=== PATIENT | female | born 1935 | race Caucasian/White ===

== ENCOUNTER 2018-08-06 16:27 | Observation (INO) ==
--- NOTE | 2018-08-06 17:21 | ED ---
HPI General Chief complaint: Recheck/Abnormal Lab/Rx Stated complaint: Cardiac Time Seen by Provider: 08/06/18 16:59 Source: patient Mode of arrival: ambulatory Limitations: no limitations History of Present Illness HPI narrative: The patient is an 83-year-old female with a past medical history significant for hypertension and chronic kidney disease that was sent by her supply cataloguer Dr. Holland due to EKG changes after reviewing her EKGs that she had with her it appears that she has flipped T waves on V5 and V6 without any other. She does have bilateral pitting edema lower extremities.Changes also there is a poor R wave progression in the precordial leads when compared to the previous studies. The patient does not have any chest pain or shortness of breath is on blood thinners for cardiac stent and has been having a labile blood pressure that fluctuates from 100/40 to 199/98. Onset (ago): week(s) (1) Pain Consistency: intermittent Related Data Home Medications Medication Instructions Recorded Confirmed aspirin 81 mg PO DAILY 08/06/18 08/06/18 losartan 25 mg PO DAILY 08/06/18 08/06/18 omeprazole 20 mg PO DAILY 08/06/18 08/06/18 pravastatin 40 mg PO DAILY 08/06/18 08/06/18 ticagrelor [Brilinta] 60 mg PO BID 08/06/18 08/06/18 Previous Rx's Medication Instructions Recorded amlodipine 7.5 mg PO DAILY #45 tab 08/07/18 Allergies Allergy/AdvReac Type Severity Reaction Status Date / Time Iodinated Contrast- Oral and Allergy Severe syncope Verified 08/06/18 21:24 IV Dye codeine AdvReac Severe numerous Verified 08/06/18 21:24 adverse reactions hydrocodone AdvReac Severe numerous Verified 08/06/18 21:24 adverse reactions oxycodone AdvReac Severe numerous Verified 08/06/18 21:24 adverse reactions propoxyphene AdvReac Severe numerous Verified 08/06/18 21:24 adverse reactions Review of Systems ROS: all other systems reviewed are negative PMFSH History History Provided By: Patient Medical History Medical History Chronic kidney disease (Acute) Coronary artery disease (Acute) Hyperlipidemia (Acute) Hypertension (Acute) Surgical History Surgical History H/O spinal fusion (Acute) History of heart artery stent (Acute) History of hip surgery (Acute) Social History Social History Substance History: No History of Abuse Second Hand Smoke Exposure: No Smoking Status: Never smoker How Often Do You Have a Drink Containing Alcohol: Monthly or less Recent Travel in [facility] within the Last 8 Weeks: No Recent Out of Country Travel within the Last 8 Weeks: No Exam Narrative Exam Narrative: GENERAL: Alert and oriented in no distress SKIN: Focused skin assessment warm/dry. Ecchymosis on various healing stages on bilateral lower extremities from blood thinners. HEAD: Atraumatic. Normocephalic. EYES: Pupils equal and round. No scleral icterus. No injection or drainage. ENT: No nasal bleeding or discharge. Mucous membranes pink and moist. NECK: Trachea midline. No JVD. CARDIOVASCULAR: Regular rate and rhythm. No murmur appreciated. RESPIRATORY: No accessory muscle use. Clear to auscultation. Breath sounds equal bilaterally. GASTROINTESTINAL: Abdomen soft, non-tender, nondistended. Hepatic and splenic margins not palpable. MUSCULOSKELETAL: No obvious deformities. No clubbing. No cyanosis. +1 pitting edema. NEUROLOGICAL: Awake and alert. No obvious cranial nerve deficits. Motor grossly within normal limits. Normal speech. PSYCHIATRIC: Appropriate mood and affect; insight and judgment normal. Course Initial Documented Vital Signs Temperature 97.8 F 08/06/18 16:32 Pulse Rate 61 08/06/18 16:32 Respiratory Rate 16 08/06/18 16:32 Blood Pressure 145/67 H 08/06/18 16:32 Pulse Oximetry 96 08/06/18 16:32 Last Documented Vital Signs Temperature 97.7 F 08/07/18 12:00 Pulse Rate 59 L 08/07/18 12:00 Respiratory Rate 16 08/07/18 12:00 Blood Pressure 161/72 H 08/07/18 12:00 Pulse Oximetry 94 L 08/07/18 12:00 Sign Out Sign Out Data: Patient Sign Out occurred on 08/06/18 at 19:03. Patient's care was discussed, and care was transferred from Raciel Castano DO to Chip Benton. Sign Out Comment: EKG changes waiting for workup. Initial troponin is negative. Patient CARE transferred to Dr. Benton Last updated by Raciel Castano DO at 08/06/18 18:56 Post-Handoff Eval: no leukocytosis, anemia, left shift....normal plt count coag profile normal first set cardiac enzymes neg electrolytes nl, nl kidney and liver functions bnp 308 which although elevated did not coincide with major pulm edema on cxr. patient's supply cataloguer dr holland requested admission...... Medical Decision Making MDM Narrative Medical Screen Exam Complete: Yes Emergency Medical Condition: Yes Lab Data Result diagrams: 08/07/18 06:03 08/07/18 15:10 Lab Results 08/06/18 08/06/18 08/06/18 Range/Units 17:25 17:25 17:25 WBC 7.7 (4.0-11.0) th/mm3 RBC 5.20 (4.00-5.30) mil/mm3 Hgb 15.8 H (11.6-15.3) gm/dL Hct 48.4 H (35.0-46.0) % MCV 93.1 (80.0-100.0) fL MCH 30.4 (27.0-34.0) pg MCHC 32.7 (32.0-36.0) % RDW 15.4 (11.6-17.2) % Plt Count 195 (150-450) th/mm3 MPV 8.7 (7.0-11.0) fL Neut % (Auto) 63.7 (16.0-70.0) % Lymph % (Auto) 22.2 (9.0-44.0) % [place] % (Auto) 10.6 H (0.0-8.0) % Eos % (Auto) 2.9 (0.0-4.0) % Baso % (Auto) 0.6 (0.0-2.0) % Neut # (Auto) 4.9 (1.8-7.7) th/mm3 Lymph # (Auto) 1.7 (1.0-4.8) th/mm3 [place] # (Auto) 0.8 (0.0-0.9) th/mm3 Eos # (Auto) 0.2 (0.0-0.4) th/mm3 Baso # (Auto) 0.0 (0.0-0.2) th/mm3 WBC Differential . Differential Comment Auto diff final PT 9.8 (9.8-11.6) sec INR 1.0 Ratio APTT 24.9 (24.3-30.1) sec Sodium 140 (136-145) meq/L Potassium 4.4 (3.5-5.1) meq/L Chloride 105 (98-107) meq/L Carbon Dioxide 27.4 (21.0-32.0) meq/L Anion Gap 8 (5-15) meq/L BUN 9 (7-18) mg/dL Creatinine 0.77 (0.50-1.00) mg/dL Estimated GFR 71 L (>89) mL/min Random Glucose 87 (74-106) mg/dL Calcium 8.8 (8.5-10.1) mg/dL Prot Corrected Calcium (8.5-10.1) mg/dL Magnesium 1.9 (1.5-2.5) mg/dL Total Bilirubin 0.6 (0.2-1.0) mg/dL AST 34 (15-37) U/L ALT 33 (10-53) U/L Alkaline Phosphatase 82 (45-117) U/L Total Creatine Kinase 85 (26-192) U/L Troponin I Less than 0.02 L (0.02-0.05) ng/mL B-Natriuretic Peptide (0-100) pg/mL Total Protein 7.4 (6.4-8.2) g/dL Albumin 3.9 (3.4-5.0) g/dL 08/06/18 08/06/18 08/07/18 Range/Units 17:25 23:43 06:00 WBC (4.0-11.0) th/mm3 RBC (4.00-5.30) mil/mm3 Hgb (11.6-15.3) gm/dL Hct (35.0-46.0) % MCV (80.0-100.0) fL MCH (27.0-34.0) pg MCHC (32.0-36.0) % RDW (11.6-17.2) % Plt Count (150-450) th/mm3 MPV (7.0-11.0) fL Neut % (Auto) (16.0-70.0) % Lymph % (Auto) (9.0-44.0) % [place] % (Auto) (0.0-8.0) % Eos % (Auto) (0.0-4.0) % Baso % (Auto) (0.0-2.0) % Neut # (Auto) (1.8-7.7) th/mm3 Lymph # (Auto) (1.0-4.8) th/mm3 [place] # (Auto) (0.0-0.9) th/mm3 Eos # (Auto) (0.0-0.4) th/mm3 Baso # (Auto) (0.0-0.2) th/mm3 WBC Differential Differential Comment PT (9.8-11.6) sec INR Ratio APTT (24.3-30.1) sec Sodium 149 H (136-145) meq/L Potassium 3.0 L D (3.5-5.1) meq/L Chloride 118 H D (98-107) meq/L Carbon Dioxide 22.1 (21.0-32.0) meq/L Anion Gap 9 (5-15) meq/L BUN 6 L (7-18) mg/dL Creatinine 0.39 L (0.50-1.00) mg/dL Estimated GFR Greater than 89 (>89) mL/min Random Glucose 63 L (74-106) mg/dL Calcium 6.3 L* D (8.5-10.1) mg/dL Prot Corrected Calcium 7.6 L (8.5-10.1) mg/dL Magnesium (1.5-2.5) mg/dL Total Bilirubin (0.2-1.0) mg/dL AST (15-37) U/L ALT (10-53) U/L Alkaline Phosphatase (45-117) U/L Total Creatine Kinase 51 31 (26-192) U/L Troponin I Less than 0.02 L 0.02 (0.02-0.05) ng/mL B-Natriuretic Peptide 308 H (0-100) pg/mL Total Protein 4.5 L D (6.4-8.2) g/dL Albumin (3.4-5.0) g/dL 08/07/18 08/07/18 08/07/18 Range/Units 06:03 13:50 15:10 WBC 7.6 (4.0-11.0) th/mm3 RBC 4.85 (4.00-5.30) mil/mm3 Hgb 14.7 (11.6-15.3) gm/dL Hct 44.9 (35.0-46.0) % MCV 92.7 (80.0-100.0) fL MCH 30.4 (27.0-34.0) pg MCHC 32.8 (32.0-36.0) % RDW 14.9 (11.6-17.2) % Plt Count 170 (150-450) th/mm3 MPV 8.8 (7.0-11.0) fL Neut % (Auto) 68.5 (16.0-70.0) % Lymph % (Auto) 19.8 (9.0-44.0) % [place] % (Auto) 8.9 H (0.0-8.0) % Eos % (Auto) 2.3 (0.0-4.0) % Baso % (Auto) 0.5 (0.0-2.0) % Neut # (Auto) 5.2 (1.8-7.7) th/mm3 Lymph # (Auto) 1.5 (1.0-4.8) th/mm3 [place] # (Auto) 0.7 (0.0-0.9) th/mm3 Eos # (Auto) 0.2 (0.0-0.4) th/mm3 Baso # (Auto) 0.0 (0.0-0.2) th/mm3 WBC Differential . Differential Comment Auto diff final PT (9.8-11.6) sec INR Ratio APTT (24.3-30.1) sec Sodium 141 (136-145) meq/L Potassium 5.5 H D 5.1 (3.5-5.1) meq/L Chloride 107 D (98-107) meq/L Carbon Dioxide 26.4 (21.0-32.0) meq/L Anion Gap 8 (5-15) meq/L BUN 9 (7-18) mg/dL Creatinine 0.68 (0.50-1.00) mg/dL Estimated GFR 82 L (>89) mL/min Random Glucose 72 L (74-106) mg/dL Calcium 9.2 D (8.5-10.1) mg/dL Prot Corrected Calcium (8.5-10.1) mg/dL Magnesium (1.5-2.5) mg/dL Total Bilirubin (0.2-1.0) mg/dL AST (15-37) U/L ALT (10-53) U/L Alkaline Phosphatase (45-117) U/L Total Creatine Kinase (26-192) U/L Troponin I (0.02-0.05) ng/mL B-Natriuretic Peptide (0-100) pg/mL Total Protein (6.4-8.2) g/dL Albumin (3.4-5.0) g/dL Imaging Data Radiologist's impression: Chest X-Ray 08/06/18 17:17 CONCLUSION: Negative examination. Discharge Plan Discharge Disposition Patient Disposition: 01 Discharge Home Discharge Condition Condition: Stable Discharge Order Discharge Orders: Discharge Order (Routine); Ordered 08/07/18 Ordered By: Anuja Walsh Discharge Details Anticipated Discharge Date: 08/07/18 Diagnosis: Acute electrocardiogram changes, HTN (hypertension) Physicians Team ED Provider: Chip Benton Primary Care Provider: NON STAFF,PROVIDER Attending Provider: Selena Yusuf Other Providers: Anupam Holland ; [employer] Discharge Interventions Interventions: ED Discharge Assessment Last Done: 08/06/18 22:22 Vital Signs Last Done: 08/06/18 16:32 Status ED Status: Left Department Discharge Information Discharge Date/Time: 08/06/18 22:00
--- NOTE | 2018-08-06 17:30 | XR ---
EXAM DATE: 08/06/2018 5:26 PM EDT AGE/SEX: 83 years / Female INDICATIONS: Chest pain CLINICAL DATA: This is the patient's initial encounter. Patient reports that signs and symptoms have been present for 1 week and indicates a pain score of 0/10. MEDICAL/SURGICAL HISTORY: Cardiovascular disease. Carotid stent. COMPARISON: [facility] [place], [place]. . FINDINGS: A single AP view of the chest demonstrates the lungs to be symmetrically aerated without evidence of mass, infiltrate or effusion. The cardiomediastinal contours are unremarkable. Osseous structures a re intact. CONCLUSION: Negative examination. Electronically signed by: Negro Avalos MD 08/06/2018 5:29 PM EDT
[2018-08-06 17:52] LABS: Baso % (Auto) 0.6 % (0.0-2.0); Eos # (Auto) 0.2 th/mm3 (0.0-0.4); Eos % (Auto) 2.9 % (0.0-4.0); Hematocrit 48.4 % (35.0-46.0); Hemoglobin 15.8 gm/dL (11.6-15.3); Lymph # (Auto) 1.7 th/mm3 (1.0-4.8); Lymph % (Auto) 22.2 % (9.0-44.0); Mean Corpuscular HGB Conc 32.7 % (32.0-36.0); Mean Corpuscular Hemoglobin 30.4 pg (27.0-34.0); Mean Corpuscular Volume 93.1 fL (80.0-100.0); Mean Platelet Volume 8.7 fL (7.0-11.0); Mono # (Auto) 0.8 th/mm3 (0.0-0.9); Mono % (Auto) 10.6 % (0.0-8.0); Neut # (Auto) 4.9 th/mm3 (1.8-7.7); Neut % (Auto) 63.7 % (16.0-70.0); Platelet Count 195 th/mm3 (150-450); Red Cell Distribution Width 15.4 % (11.6-17.2); White Blood Count 7.7 th/mm3 (4.0-11.0)
[2018-08-06 18:03] LABS: Activated Partial Thrombo Time 24.9 sec (24.3-30.1); Prothrombin Time 9.8 sec (9.8-11.6)
[2018-08-06 18:16] LABS: Alanine Aminotransferase 33 U/L (10-53)
[2018-08-06 18:19] LABS: Alkaline Phosphatase 82 U/L (45-117); Total Protein 7.4 g/dL (6.4-8.2)
[2018-08-06 18:45] LABS: Creatine Kinase 85 U/L (26-192)
[2018-08-06 18:47] LABS: Albumin 3.9 g/dL (3.4-5.0); Anion Gap 8 meq/L (5-15); Aspartate Aminotransferase 34 U/L (15-37); Blood Urea Nitrogen 9 mg/dL (7-18); Calcium 8.8 mg/dL (8.5-10.1); Carbon Dioxide 27.4 meq/L (21.0-32.0); Chloride 105 meq/L (98-107); Glomerular Filtration Rate 71 mL/min (>89); Glucose,Random 87 mg/dL (74-106); Magnesium 1.9 mg/dL (1.5-2.5); Potassium 4.4 meq/L (3.5-5.1); Sodium 140 meq/L (136-145)
[2018-08-06] MEDS ORDERED: Acetaminophen 325 MG Tablet PO PRN (20:44)
[2018-08-06] MEDS ORDERED: Bisacodyl 10 MG Supp RECTAL PRN (20:44)
--- NOTE | 2018-08-06 22:03 | P.HP ---
History of Present Illness Service: [facility] Primary Care Physician: PROVIDER NON STAFF History of Present Illness: 83-year-old female with a past medical history significant for coronary artery disease, chronic kidney disease, hypertension and hyperlipidemia presents to the emergency department for the evaluation of acute EKG changes. The patient was sent by her hub lead, Dr. Holland, due to EKG changes. The patient has new inverted T waves on V5 and V6 and poor R-wave progression. She also has bilateral pitting edema. She denies chest pain or shortness of breath. No abdominal pain, nausea/vomiting/diarrhea. No jaw or neck pain. No diaphoresis. No fever/chills. No lateralizing signs/symptoms. [facility] - History History Provided By: Patient - Medical History Medical History: Medical History (Last Updated 08/06/18 @ 21:56 by Shilpa Medley MD) Chronic kidney disease Coronary artery disease Hyperlipidemia Hypertension - Surgical History Surgical History: Surgical History (Last Updated 08/06/18 @ 21:57 by Shilpa Medley MD) H/O spinal fusion History of heart artery stent History of hip surgery - Tobacco History Smoking Status: Never smoker - Alcohol History How Often Do You Have a Drink Containing Alcohol: Never - Travel History Recent Travel in the [place] Within the Last 8 Weeks: No Recent Travel Out of the Country Within the Last 8 Weeks: No - Immunization History Tetanus Immunization: <5 Years Medications and Allergies Active Medications: Active Medications Acetaminophen (Tylenol) 650 mg PO Q4H PRN PRN Reason: Temp > 100.4 Amlodipine Besylate (Norvasc) 5 mg PO DAILY [facility] Aspirin (Aspirin Chew) 81 mg PO DAILY [facility] Bisacodyl (Dulcolax Supp) 10 mg RECTAL DAILY PRN PRN Reason: SEVERE CONSITIPATION Lactulose (Lactulose Liq) 30 ml PO DAILY PRN PRN Reason: SEVERE CONSITIPATION Losartan Potassium (Cozaar) 25 mg PO DAILY [facility] Ondansetron HCl (Zofran Inj) 4 mg IV.PUSH Q6H PRN PRN Reason: NAUSEA OR VOMITING Pantoprazole Sodium (Protonix) 20 mg PO DAILY [facility] Pravastatin Sodium (Pravachol) 40 mg PO DAILY [facility] Sennosides (Senokot) 17.2 mg PO Q12H PRN PRN Reason: Moderate Constipation Sodium Chloride (Ns Flush) 2 ml IV.FLUSH UNSCH PRN PRN Reason: FLUSH AFTER USING IV ACCESS Ticagrelor (Brilinta) 60 mg PO BID [facility] Last Admin: 08/06/18 20:55 Dose: Not Given Allergies Allergy/AdvReac Type Severity Reaction Status Date / Time Iodinated Contrast- Oral and Allergy Severe syncope Verified 08/06/18 21:24 IV Dye codeine AdvReac Severe numerous Verified 08/06/18 21:24 adverse reactions hydrocodone AdvReac Severe numerous Verified 08/06/18 21:24 adverse reactions oxycodone AdvReac Severe numerous Verified 08/06/18 21:24 adverse reactions propoxyphene AdvReac Severe numerous Verified 08/06/18 21:24 adverse reactions Home Medications Medication Instructions Recorded Confirmed Type amlodipine 5 mg PO DAILY 08/06/18 08/06/18 History aspirin 81 mg PO DAILY 08/06/18 08/06/18 History losartan 25 mg PO DAILY 08/06/18 08/06/18 History omeprazole 20 mg PO DAILY 08/06/18 08/06/18 History pravastatin 40 mg PO DAILY 08/06/18 08/06/18 History ticagrelor [Brilinta] 60 mg PO BID 08/06/18 08/06/18 History Exam Vital signs: Vital Signs 08/06/18 16:32 08/06/18 17:33 08/06/18 18:48 Temperature 97.8 F Pulse Rate 61 57 L Respiratory Rate 16 17 Blood Pressure 145/67 H 168/75 H Pulse Oximetry 96 98 96 08/06/18 21:26 Temperature Pulse Rate 60 Respiratory Rate 20 Blood Pressure 166/70 H Pulse Oximetry 97 Intake & Output 08/06/18 08/06/18 08/07/18 06:59 18:59 06:59 Weight 48.988 kg Narrative: Gen.: No acute distress Head: Normocephalic. Atraumatic. EENT: Pupils equal round and reactive to light. Nose without drainage. Airway intact. Throat without injection. Cardiovascular: Regular rate and rhythm. No murmurs, rubs or gallops. Respiratory: Lungs clear to auscultation bilaterally. No wheezes or rhonchi. Abdomen: Soft, nontender, nondistended. No peritoneal signs. Musculoskeletal: No gross deformities. No edema. Skin: No obvious rashes or erythema. Neuro: Sensory and motor grossly intact. Cranial nerves II through XII grossly intact. Results - Labs CBC & Chem 7: 08/06/18 17:25 08/06/18 17:25 Labs: Laboratory Results - last 24 hr 08/06/18 08/06/18 08/06/18 17:25 17:25 17:25 WBC 7.7 RBC 5.20 Hgb 15.8 H Hct 48.4 H MCV 93.1 MCH 30.4 MCHC 32.7 RDW 15.4 Plt Count 195 MPV 8.7 Neut % (Auto) 63.7 Lymph % (Auto) 22.2 [place] % (Auto) 10.6 H Eos % (Auto) 2.9 Baso % (Auto) 0.6 Neut # (Auto) 4.9 Lymph # (Auto) 1.7 [place] # (Auto) 0.8 Eos # (Auto) 0.2 Baso # (Auto) 0.0 WBC Differential . Differential Comment Auto diff final PT 9.8 INR 1.0 APTT 24.9 Sodium 140 Potassium 4.4 Chloride 105 Carbon Dioxide 27.4 Anion Gap 8 BUN 9 Creatinine 0.77 Estimated GFR 71 L Random Glucose 87 Calcium 8.8 Magnesium 1.9 Total Bilirubin 0.6 AST 34 ALT 33 Alkaline Phosphatase 82 Total Creatine Kinase 85 Troponin I Less than 0.02 L B-Natriuretic Peptide Total Protein 7.4 Albumin 3.9 08/06/18 17:25 WBC RBC Hgb Hct MCV MCH MCHC RDW Plt Count MPV Neut % (Auto) Lymph % (Auto) [place] % (Auto) Eos % (Auto) Baso % (Auto) Neut # (Auto) Lymph # (Auto) [place] # (Auto) Eos # (Auto) Baso # (Auto) WBC Differential Differential Comment PT INR APTT Sodium Potassium Chloride Carbon Dioxide Anion Gap BUN Creatinine Estimated GFR Random Glucose Calcium Magnesium Total Bilirubin AST ALT Alkaline Phosphatase Total Creatine Kinase Troponin I B-Natriuretic Peptide 308 H Total Protein Albumin - Imaging Impressions Chest X-Ray 08/06/18 17:17 CONCLUSION: Negative examination. Caprini VTE Risk Assessment Caprini VTE Risk Assessment: Moderate/High Risk (score >= 2) Caprini Risk Assessment Model: Point Value = 1 Point Value = 2 Point Value = 3 Point Value = 5 Age 41-60 Minor surgery BMI > 25 kg/m2 Swollen legs Varicose veins or History of unexplained or recurrent spontaneous Oral contraceptives or hormone replacement Sepsis (< 1 month) Serious lung disease, including pneumonia (< 1 month) Abnormal pulmonary function Acute myocardial infarction Congestive heart failure (< 1 month) History of inflammatory bowel disease Medical patient at bed rest Age 61-74 Arthroscopic surgery Major open surgery (> 45 min) Laparoscopic surgery (> 45 min) Malignancy Confined to bed (> 72 hours) Immobilizing plaster cast Central venous access Age >= 75 History of VTE Family history of VTE Factor V Leiden Prothrombin [id number] Lupus anticoagulant Anticardiolipin antibodies Elevated serum homocysteine Heparin-induced thrombocytopenia Other congenital or acquired thrombophilia Stroke (< 1 month) Elective arthroplasty Hip, pelvis, or leg fracture Acute spinal cord injury (< 1 month) Prophylaxis Regimen: Total Risk Factor Score Risk Level Prophylaxis Regimen 0-1 Low Early ambulation 2 Moderate Order ONE of the following: *Sequential Compression Device (SCD) *Heparin 5000 units SQ BID 3-4 Higher Order ONE of the following medications: *Heparin 5000 units SQ TID *Enoxaparin/Lovenox 40 mg SQ daily (WT < 150 kg, CrCl > 30 mL/min) *Enoxaparin/Lovenox 30 mg SQ daily (WT < 150 kg, CrCl > 10-29 mL/min) *Enoxaparin/Lovenox 30 mg SQ BID (WT < 150 kg, CrCl > 30 mL/min) AND/OR *Sequential Compression Device (SCD) 5 or more Highest Order ONE of the following medications: *Heparin 5000 units SQ TID (Preferred with Epidurals) *Enoxaparin/Lovenox 40 mg SQ daily (WT < 150 kg, CrCl > 30 mL/min) *Enoxaparin/Lovenox 30 mg SQ daily (WT < 150 kg, CrCl > 10-29 mL/min) *Enoxaparin/Lovenox 30 mg SQ BID (WT < 150 kg, CrCl > 30 mL/min) AND *Sequential Compression Device (SCD) Assessment and Plan - Plan Assessment/plan: 1. Acute EKG changes Initial troponin negative EKG as documented in HPI ACS rule out pending; serial troponins/EKGs Patient's hub lead, Dr. Holland consulted, appreciate recommendations 2. Chronic kidney disease Creatinine 0.77 Monitor renal function 3. Hypertension/hyperlipidemia Continue home amlodipine, losartan, pravastatin 4. Coronary artery disease Continue home Brilinta, aspirin FEN N.p.o. Electrolytes: Monitor and replete as needed Heparin
[2018-08-06 23:35] VITALS: RESP 16
[2018-08-07 00:35] LABS: Creatine Kinase 51 U/L (26-192)
[2018-08-07 06:38] LABS: Anion Gap 9 meq/L (5-15); Blood Urea Nitrogen 6 mg/dL (7-18); Carbon Dioxide 22.1 meq/L (21.0-32.0); Chloride 118 meq/L (98-107); Glomerular Filtration Rate Greater Than 89 mL/min (>89); Sodium 149 meq/L (136-145)
[2018-08-07 06:39] LABS: Calcium 6.3 mg/dL (8.5-10.1); Glucose,Random 63 mg/dL (74-106); Troponin I 0.02 ng/mL (0.02-0.05)
[2018-08-07 06:43] LABS: Creatine Kinase 31 U/L (26-192)
--- NOTE | 2018-08-07 07:00 | P.PNCA ---
Physical Exam Vital signs: Vital Signs 08/06/18 16:32 08/06/18 17:33 08/06/18 18:48 Temperature 97.8 F Pulse Rate 61 57 L Respiratory Rate 16 17 Blood Pressure 145/67 H 168/75 H Pulse Oximetry 96 98 96 08/06/18 21:26 08/06/18 23:33 08/07/18 00:00 Temperature 97.3 F L 97.3 F L Pulse Rate 60 56 L 56 L Respiratory Rate 20 16 16 Blood Pressure 166/70 H 164/71 H 164/71 H Pulse Oximetry 97 95 95 08/07/18 03:55 Temperature 98.1 F Pulse Rate 68 Respiratory Rate 16 Blood Pressure 130/60 Pulse Oximetry 95 Intake & Output 08/06/18 08/06/18 08/07/18 06:59 18:59 06:59 Weight 48.988 kg 48.988 kg Other: Weight On Admission 48.988 kg Results Completed studies during hospitalization: Laboratory Results - last 24 hr 08/06/18 08/06/18 08/06/18 17:25 17:25 17:25 WBC 7.7 RBC 5.20 Hgb 15.8 H Hct 48.4 H MCV 93.1 MCH 30.4 MCHC 32.7 RDW 15.4 Plt Count 195 MPV 8.7 Neut % (Auto) 63.7 Lymph % (Auto) 22.2 [place] % (Auto) 10.6 H Eos % (Auto) 2.9 Baso % (Auto) 0.6 Neut # (Auto) 4.9 Lymph # (Auto) 1.7 [place] # (Auto) 0.8 Eos # (Auto) 0.2 Baso # (Auto) 0.0 WBC Differential . Differential Comment Auto diff final PT 9.8 INR 1.0 APTT 24.9 Sodium 140 Potassium 4.4 Chloride 105 Carbon Dioxide 27.4 Anion Gap 8 BUN 9 Creatinine 0.77 Estimated GFR 71 L Random Glucose 87 Calcium 8.8 Magnesium 1.9 Total Bilirubin 0.6 AST 34 ALT 33 Alkaline Phosphatase 82 Total Creatine Kinase 85 Troponin I Less than 0.02 L B-Natriuretic Peptide Total Protein 7.4 Albumin 3.9 08/06/18 08/06/18 08/07/18 17:25 23:43 06:00 WBC RBC Hgb Hct MCV MCH MCHC RDW Plt Count MPV Neut % (Auto) Lymph % (Auto) [place] % (Auto) Eos % (Auto) Baso % (Auto) Neut # (Auto) Lymph # (Auto) [place] # (Auto) Eos # (Auto) Baso # (Auto) WBC Differential Differential Comment PT INR APTT Sodium 149 H Potassium 3.0 L D Chloride 118 H D Carbon Dioxide 22.1 Anion Gap 9 BUN 6 L Creatinine 0.39 L Estimated GFR Greater than 89 Random Glucose 63 L Calcium 6.3 L* D Magnesium Total Bilirubin AST ALT Alkaline Phosphatase Total Creatine Kinase 51 31 Troponin I Less than 0.02 L 0.02 B-Natriuretic Peptide 308 H Total Protein Albumin Labs on day of discharge: Labs from last 24 hours 08/07/18 08/06/18 08/06/18 06:00 23:43 17:25 WBC RBC Hgb Hct MCV MCH MCHC RDW Plt Count MPV Neut % (Auto) Lymph % (Auto) [place] % (Auto) Eos % (Auto) Baso % (Auto) Neut # (Auto) Lymph # (Auto) [place] # (Auto) Eos # (Auto) Baso # (Auto) WBC Differential Differential Comment PT INR APTT Sodium 149 H Potassium 3.0 L D Chloride 118 H D Carbon Dioxide 22.1 Anion Gap 9 BUN 6 L Creatinine 0.39 L Estimated GFR Greater than 89 Random Glucose 63 L Calcium 6.3 L* D Prot Corrected Calcium Pending Magnesium Total Bilirubin AST ALT Alkaline Phosphatase Total Creatine Kinase 31 51 Troponin I 0.02 Less than 0.02 L B-Natriuretic Peptide 308 H Total Protein Pending Albumin 08/06/18 08/06/18 08/06/18 17:25 17:25 17:25 WBC 7.7 RBC 5.20 Hgb 15.8 H Hct 48.4 H MCV 93.1 MCH 30.4 MCHC 32.7 RDW 15.4 Plt Count 195 MPV 8.7 Neut % (Auto) 63.7 Lymph % (Auto) 22.2 [place] % (Auto) 10.6 H Eos % (Auto) 2.9 Baso % (Auto) 0.6 Neut # (Auto) 4.9 Lymph # (Auto) 1.7 [place] # (Auto) 0.8 Eos # (Auto) 0.2 Baso # (Auto) 0.0 WBC Differential . Differential Comment Auto diff final PT 9.8 INR 1.0 APTT 24.9 Sodium 140 Potassium 4.4 Chloride 105 Carbon Dioxide 27.4 Anion Gap 8 BUN 9 Creatinine 0.77 Estimated GFR 71 L Random Glucose 87 Calcium 8.8 Prot Corrected Calcium Magnesium 1.9 Total Bilirubin 0.6 AST 34 ALT 33 Alkaline Phosphatase 82 Total Creatine Kinase 85 Troponin I Less than 0.02 L B-Natriuretic Peptide Total Protein 7.4 Albumin 3.9 - Impressions ITS Impressions Chest X-Ray 08/06/18 17:17 CONCLUSION: Negative examination.
[2018-08-07 07:01] LABS: Total Protein 4.5 g/dL (6.4-8.2)
[2018-08-07 07:12] LABS: Baso % (Auto) 0.5 % (0.0-2.0); Eos # (Auto) 0.2 th/mm3 (0.0-0.4); Eos % (Auto) 2.3 % (0.0-4.0); Hematocrit 44.9 % (35.0-46.0); Hemoglobin 14.7 gm/dL (11.6-15.3); Lymph # (Auto) 1.5 th/mm3 (1.0-4.8); Lymph % (Auto) 19.8 % (9.0-44.0); Mean Corpuscular HGB Conc 32.8 % (32.0-36.0); Mean Corpuscular Hemoglobin 30.4 pg (27.0-34.0); Mean Corpuscular Volume 92.7 fL (80.0-100.0); Mean Platelet Volume 8.8 fL (7.0-11.0); Mono # (Auto) 0.7 th/mm3 (0.0-0.9); Mono % (Auto) 8.9 % (0.0-8.0); Neut # (Auto) 5.2 th/mm3 (1.8-7.7); Neut % (Auto) 68.5 % (16.0-70.0); Platelet Count 170 th/mm3 (150-450); Red Blood Count 4.85 mil/mm3 (4.00-5.30); Red Cell Distribution Width 14.9 % (11.6-17.2); White Blood Count 7.6 th/mm3 (4.0-11.0)
[2018-08-07] MEDS ORDERED: amLODIPine 5 MG Tablet PO SCH (09:00)
[2018-08-07] MEDS ORDERED: Pantoprazole Sodium 20 MG DR Tablet PO SCH (09:00)
[2018-08-07] MEDS ORDERED: Heparin - SQ 10,000 UNITS/ML Vial SQ SCH (09:00)
[2018-08-07] MEDS ORDERED: Calcium Gluconate Inj 1 GM in Dextrose 5% in Water Inj 100 ML IV.SIG ONE ×2 (10:00)
--- NOTE | 2018-08-07 10:12 | P.PN ---
Subjective Interval history: Follow-up for abnormal EKG. Patient reports no medical complaints. She denies any lightheadedness or dizziness. Denies any chest pain, palpitations, shortness of breath. Patient states recently her blood pressure meds have been adjusted. Her spironolactone was discontinued a month ago. Her Norvasc was recently decreased to 5 mg secondary to low blood pressures, however no blood pressures in the 160s. Physical Exam Vital signs: Vital Signs 08/06/18 16:32 08/06/18 17:33 08/06/18 18:48 Temperature 97.8 F Pulse Rate 61 57 L Respiratory Rate 16 17 Blood Pressure 145/67 H 168/75 H Pulse Oximetry 96 98 96 08/06/18 21:26 08/06/18 23:33 08/07/18 00:00 Temperature 97.3 F L 97.3 F L Pulse Rate 60 56 L 56 L Respiratory Rate 20 16 16 Blood Pressure 166/70 H 164/71 H 164/71 H Pulse Oximetry 97 95 95 08/07/18 03:55 08/07/18 07:47 Temperature 98.1 F Pulse Rate 68 62 Respiratory Rate 16 16 Blood Pressure 130/60 163/71 H Pulse Oximetry 95 92 L Intake & Output 08/06/18 08/07/18 08/07/18 18:59 06:59 18:59 Intake Total 0 / 0 Balance 0 / 0 Weight 48.988 kg 48.988 kg Intake: Oral 0 / 0 Other: # Voids 1 Weight On Admission 48.988 kg Narrative: GENERAL: Well-nourished, well-developed pleasant elderly female patient in [facility]. SKIN: Warm and dry. No rash. HEENT: Normocephalic. Atraumatic. Pupils equal and round. Mucous membranes pink and moist. NECK: Supple. Trachea midline. CARDIOVASCULAR: Regular rate and rhythm. No murmur appreciated. RESPIRATORY: No accessory muscle use. Clear to auscultation. Breath sounds equal bilaterally. GASTROINTESTINAL: Abdomen soft, non-tender, nondistended. Normoactive bowel sounds x4. MUSCULOSKELETAL: No obvious deformities. Extremities without clubbing, cyanosis , or edema. Absolutely no edema. NEUROLOGICAL: Awake and alert. No obvious cranial nerve deficits. Motor grossly within normal limits. Moving all extremities spontaneously. Normal speech. PSYCHIATRIC: Appropriate mood and affect; insight and judgment normal. Results - Labs CBC & Chem 7: 08/07/18 06:03 08/07/18 06:00 Laboratory Results - last 24 hr 08/06/18 08/06/18 08/06/18 17:25 17:25 17:25 WBC 7.7 RBC 5.20 Hgb 15.8 H Hct 48.4 H MCV 93.1 MCH 30.4 MCHC 32.7 RDW 15.4 Plt Count 195 MPV 8.7 Neut % (Auto) 63.7 Lymph % (Auto) 22.2 Walton % (Auto) 10.6 H Eos % (Auto) 2.9 Baso % (Auto) 0.6 Neut # (Auto) 4.9 Lymph # (Auto) 1.7 Walton # (Auto) 0.8 Eos # (Auto) 0.2 Baso # (Auto) 0.0 WBC Differential . Differential Comment Auto diff final PT 9.8 INR 1.0 APTT 24.9 Sodium 140 Potassium 4.4 Chloride 105 Carbon Dioxide 27.4 Anion Gap 8 BUN 9 Creatinine 0.77 Estimated GFR 71 L Random Glucose 87 Calcium 8.8 Prot Corrected Calcium Magnesium 1.9 Total Bilirubin 0.6 AST 34 ALT 33 Alkaline Phosphatase 82 Total Creatine Kinase 85 Troponin I Less than 0.02 L B-Natriuretic Peptide Total Protein 7.4 Albumin 3.9 08/06/18 08/06/18 08/07/18 17:25 23:43 06:00 WBC RBC Hgb Hct MCV MCH MCHC RDW Plt Count MPV Neut % (Auto) Lymph % (Auto) Walton % (Auto) Eos % (Auto) Baso % (Auto) Neut # (Auto) Lymph # (Auto) Walton # (Auto) Eos # (Auto) Baso # (Auto) WBC Differential Differential Comment PT INR APTT Sodium 149 H Potassium 3.0 L D Chloride 118 H D Carbon Dioxide 22.1 Anion Gap 9 BUN 6 L Creatinine 0.39 L Estimated GFR Greater than 89 Random Glucose 63 L Calcium 6.3 L* D Prot Corrected Calcium 7.6 L Magnesium Total Bilirubin AST ALT Alkaline Phosphatase Total Creatine Kinase 51 31 Troponin I Less than 0.02 L 0.02 B-Natriuretic Peptide 308 H Total Protein 4.5 L D Albumin 08/07/18 06:03 WBC 7.6 RBC 4.85 Hgb 14.7 Hct 44.9 MCV 92.7 MCH 30.4 MCHC 32.8 RDW 14.9 Plt Count 170 MPV 8.8 Neut % (Auto) 68.5 Lymph % (Auto) 19.8 Walton % (Auto) 8.9 H Eos % (Auto) 2.3 Baso % (Auto) 0.5 Neut # (Auto) 5.2 Lymph # (Auto) 1.5 Walton # (Auto) 0.7 Eos # (Auto) 0.2 Baso # (Auto) 0.0 WBC Differential . Differential Comment Auto diff final PT INR APTT Sodium Potassium Chloride Carbon Dioxide Anion Gap BUN Creatinine Estimated GFR Random Glucose Calcium Prot Corrected Calcium Magnesium Total Bilirubin AST ALT Alkaline Phosphatase Total Creatine Kinase Troponin I B-Natriuretic Peptide Total Protein Albumin - Imaging Impressions Chest X-Ray 08/06/18 17:17 CONCLUSION: Negative examination. Assessment and Plan - Plan 83-year-old female with a past medical history significant for coronary artery disease, chronic kidney disease, hypertension and hyperlipidemia presents to the emergency department for the evaluation of acute EKG changes. The patient was sent by her time analysis clerk, Dr. Holland, due to EKG changes. Acute EKG changes: Although patient was sent with abnormal EKG, upon review of EMR, patient's EKG is similar to previous visits. No complaints of chest pain. -ACS ruled out with negative serial cardiac enzymes 3, and EKG without acute ST changes -Continue patient's home cardiac medications -Consult patient's time analysis clerk Dr. Holland, seen by Dr. Rosenbaum, discussed with him, agrees EKG similar to previous, recommends increasing Norvasc to 7.5 mg daily for better blood pressure control, otherwise no further cardiac workup and can be discharged home with outpatient follow-up. Chronic kidney disease, stage II: Chronic, at baseline -Avoid nephrotoxins -Outpatient follow-up Hypertension/hyperlipidemia: Chronic, BP not well controlled, antihypertensives recently adjusted as outpatient however SBP still in 160s -Continue home amlodipine, losartan, pravastatin -Discussed with Dr. Rosenbaum, recommending increasing Norvasc to 7.5 mg daily , prescription provided at discharge -Outpatient follow-up with PCP for further blood pressure monitoring Coronary artery disease: Chronic, no complaints of chest pain, ACS ruled out -Continue home Brilinta, aspirin Hypokalemia/hypocalcemia: Potassium 3.0, PCC 7.6 -replaced potassium and calcium -Repeat BMP pending DVT prophylaxis: Heparin sq Discharge Planning: Will discharge if repeat BMP unremarkable. Discharge patient to home Condition on discharge: Stable Cardiac diet as tolerated Ad Madelyn activity Rx written: Norvasc 7.5 mg daily Follow-up with primary care physician and time analysis clerk Dr. Holland
[2018-08-07 12:24] VITALS: BP 161/72; PULSE 59; TEMP 97.7; O2SAT 94
[2018-08-07 14:24] LABS: Calcium 9.2 mg/dL (8.5-10.1); Carbon Dioxide 26.4 meq/L (21.0-32.0)
[2018-08-07 14:29] LABS: Potassium 5.5 meq/L (3.5-5.1)
--- NOTE | 2018-08-07 19:51 | MB ---
cc: RobiKamaljit Esme BANG DATE: 08/07/2018 REASON FOR CONSULTATION: Abnormal EKG. HISTORY OF PRESENT ILLNESS: Maryam Santacruz is a pleasant 83-year-old female who sees my partner, Dr. Anupam Holland, in the office and presented due to the recommendations of her primary care physician, as well as Dr. Holland, to the emergency room. Apparently, the patient recently has had her medications changed for blood pressure. She was out camping in [place] at the time, where she lives, and started not feeling well. She went to the emergency room and was found to be somewhat hypotensive with a blood pressure of 100/40. At that time, she had her Norvasc decreased to 5 mg daily and was recommended followup with her primary care physician. Upon seeing her primary care physician yesterday, she was noted to be quite hypertensive and had an EKG done, which showed some ST changes in the lateral leads. A call was placed to Dr. Holland mentioning her episode of hypotension as well as EKG changes. As she has a history of left main stenting, he felt that she should be evaluated in the emergency room acutely and not wait for an outpatient visit. Upon arriving in the emergency room, EKG was repeated, which did show some mild ST-T wave changes in the lateral leads. She was admitted. In seeing her, she denies chest pain or shortness of breath and feels overall well. PAST MEDICAL HISTORY: 1. Coronary artery disease. 2. Hypertension. 3. Hyperlipidemia. 4. Chronic kidney disease. PAST SURGICAL HISTORY: 1. 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 Left circumflex has mild irregularities. Right coronary artery is dominant with mild irregularities. She underwent PCI of her left main with a Resolute drug-eluting stent (3 x 12). This was postdilated to 3.75. 2. History of spinal fusion. 3. Hip surgery. ALLERGIES: 1. CONTRAST. 2. CODEINE. 3. HYDROCODONE. 4. OXYCODONE. 5. PROPOXYPHENE. MEDICATIONS: 1. Omeprazole 20 mg daily. 2. Pravastatin 40 mg daily. 3. Losartan 25 mg daily. 4. Aspirin 81 mg daily. 5. Brilinta 60 mg b.i.d. 6. Norvasc 5 mg daily. FAMILY HISTORY: Denies premature coronary artery disease or sudden cardiac within the family. SOCIAL HISTORY: Denies tobacco, alcohol or drug abuse. REVIEW OF SYSTEMS: Fourteen systems were reviewed including osteopathic. Pertinent positives and negatives above, otherwise negative. PHYSICAL EXAMINATION: VITAL SIGNS: Temperature 98.1, heart rate 62, blood pressure 163/71, respirations 16, pulse oximetry 94% on room air. GENERAL: The patient appears well, in no acute distress, alert, awake and oriented x3. HEENT: Extraocular muscles intact. Mucous membranes moist. NECK: Supple. No JVD at 45 degrees. No carotid bruits heard bilaterally. Carotid upstroke is brisk in nature. HEART: Regular rate and rhythm. Positive first and second heart sound noted. No murmurs, gallops or rubs. LUNGS: Clear to auscultation bilaterally. No wheezes, rales or rhonchi. ABDOMEN: Soft, nontender, nondistended. No organomegaly noted. EXTREMITIES: Show no clubbing, cyanosis or edema. Femoral and distal pulses intact bilaterally. NEUROLOGIC: No focal deficits. SKIN: Warm, dry and intact. OSTEOPATHIC: No kyphoscoliosis, lordosis or paraspinal tender points. LABORATORY DATA: Hemoglobin 14.7, hematocrit 44.9, platelets 170. Potassium 3.0, BUN 6, creatinine 0.39. Troponin negative x3. Electrocardiogram (08/07/2018 at 0545): Sinus bradycardia, septal myocardial infarction, ST-T wave changes laterally. IMPRESSION: 1. Abnormal EKG. 2. Hypertension. 3. Recent change in her blood pressure medication after being hypotensive. 4. Coronary artery disease with a history of left main stenting. RECOMMENDATIONS: 1. Ms. Santacruz presented at the recommendations of her primary care physician and Dr. Holland, due to the concern for hypotension as well as EKG changes. 2. As far as her hypotension goes, it appears that she recently had some changes in her medication and overall needs follow up with her primary care physician for titration of her medications. For now, I would send her home on Norvasc 7.5, as she was slightly hypotensive on 10 mg, but has been hypertensive on 5 mg. 3. As far as her EKG, this is similar going all the way back to 2006. Overall, I would not consider this an acute change by any means that her troponins are negative. She is asymptomatic and she will continue on aspirin and Brilinta for her previous left main stent. 4. She will follow up with Dr. Holland as previously scheduled. 5. Overall, I think that she is cardiovascularly stable and can be discharged later this afternoon, if her electrolytes are repleted. Thank you for allowing me to see Maryam Santacruz. If there are any questions, please do not hesitate to call. DO SHANTELL Norris/thi , 06:44 PM , 06:56 PM
--- NOTE | 2018-08-08 01:01 | ECG ---
Date Performed: 08/07/2018 Time Performed: 05:45:26 PTAGE: 83 years EKG: SINUS BRADYCARDIA SEPTAL MYOCARDIAL INFARCTION MODERATE T-WAVE ABNORMALITY, CONSIDER LATERA L ISCHEMIA ABNORMAL ECG PREVIOUS TRACING : 08/07/2018 00.20 Since the previous tracing, no significant change noted DOCTOR: Kamaljit Rosenbaum Interpretating Date/Time 08/08/2018 01:00:47
--- NOTE | 2018-08-08 13:01 | ECG ---
Date Performed: 08/07/2018 Time Performed: 00:20:53 PTAGE: 83 years EKG: SINUS BRADYCARDIA SEPTAL MYOCARDIAL INFARCTION MODERATE T-WAVE ABNORMALITY, CONSIDER LATERA L ISCHEMIA ABNORMAL ECG PREVIOUS TRACING : 08/06/2018 17.41 Since the previous tracing, no significant change noted DOCTOR: Kamaljit Rosenbaum Interpretating Date/Time 08/08/2018 12:59:35
--- NOTE | 2018-08-08 13:20 | ECG ---
Date Performed: 08/06/2018 Time Performed: 17:41:58 PTAGE: 83 years EKG: SINUS BRADYCARDIA WITH SINUS ARRHYTHMIA MARKED LEFT AXIS DEVIATION LEFT VENTRICULAR HYPERTR OPHY AND ST-T CHANGE POSSIBLE SEPTAL MYOCARDIAL INFARCTION ABNORMAL ECG PREVIOUS TRACING : 08/11/2015 05.30 Since the previous tracing, no significant change noted DOCTOR: Kamaljit Rosenbaum Interpretating Date/Time 08/08/2018 13:19:20
== END 2018-08-07 16:32 | disposition home or self-care (01) ==
LOC: NEPC 16:27 → NEDA 16:27 → NEPGCP 22:26
PROVIDERS: ADMIT Family Medicine; ATTEND Family Medicine
DX: I95.9 Hypotension, unspecified; E87.6 Hypokalemia; I25.10 Atherosclerotic heart disease of native coronary artery without angina pectoris; Z79.82 Long term (current) use of aspirin; I12.9 Hypertensive chronic kidney disease with stage 1 through stage 4 chronic kidney disease, or unspecified chronic kidney disease; R94.31 Abnormal electrocardiogram [ECG] [EKG]; Z98.1 Arthrodesis status; N18.2 Chronic kidney disease, stage 2 (mild); E83.51 Hypocalcemia; E78.5 Hyperlipidemia, unspecified; Z95.5 Presence of coronary angioplasty implant and graft